=== PATIENT | female | born 1945 | race Caucasian/White ===

== ENCOUNTER → 2024-03-01 10:24 | Outpatient (REF) | payer MEDICARE, SELFPAY | LOC: HWWDC 10:24 | PROVIDERS: ATTENDING PHYSICIAN Internal Medicine Geriatric Medicine | DX: Z12.31 Encounter for screening mammogram for malignant neoplasm of breast (principal) | CPT/HCPCS: 77063; 77067 ==

== ENCOUNTER 2024-06-28 06:26 | Day surgery (SDC) | payer MEDICARE, SELFPAY | END 2024-06-28 15:00 | disposition home or self-care (01) | LOC: GI 06:26 | PROVIDERS: ATTENDING PHYSICIAN Internal Medicine Gastroenterology | DX: R12 Heartburn (principal); Q39.9 Congenital malformation of esophagus, unspecified; Z98.84 Bariatric surgery status; K28.9 Gastrojejunal ulcer, unspecified as acute or chronic, without hemorrhage or perforation; R13.14 Dysphagia, pharyngoesophageal phase | CPT/HCPCS: 43239; 88305; 88342 ==

== ENCOUNTER 2024-09-25 06:25 | Day surgery (SDC) | payer MEDICARE, SELFPAY | END 2024-09-25 11:19 | disposition home or self-care (01) | LOC: GI 06:25 | PROVIDERS: ATTENDING PHYSICIAN Internal Medicine Gastroenterology; FAMILY PHYSICIAN Internal Medicine Cardiovascular Disease | DX: R12 Heartburn (principal); Q39.9 Congenital malformation of esophagus, unspecified; K28.3 Acute gastrojejunal ulcer without hemorrhage or perforation; Z98.84 Bariatric surgery status | CPT/HCPCS: 43235 ==

== ENCOUNTER 2024-09-30 09:21 | Emergency (ER) | payer MEDICARE, SELFPAY ==
[2024-09-30 09:23] VITALS: BP 138/70
--- NOTE | 2024-09-30 10:31 | ED.GENMED ---
History of Present Illness
General
Chief Complaint: Musculo-Skeletal Complaint
Source: patient
Exam Limitations: none
Time Seen by Provider: 09/30/24 09:45
History of Present Illness
History of Present Illness:
79yoF with prior bilateral knee replacements presenting for evaluation of left knee pain. Patient fell asleep on her couch last night. She woke up around midnight and her left leg was asleep. She shook her leg to relieve the paresthesias and
thought she was okay. When she stood up, her left knee 'flexed wrong.' She has been having pain with weight bearing since then. She took Tylenol and Tramadol with some improvement. She denies any pain at rest. She is mainly concerned that her
hardware may be damaged.
Past History
Past History
ED Past Medical History: GERD, Hypercholesterolemia and Other (Gastritis, osteoarthritis, neuropathy, insomnia, osteopenia, chronic low back pain )
ED Past Surgical History: Appendectomy, Cholecystectomy, Orthopedic (Bilateral total knee replacements, lumbar surgery, foot surgery) and Other (Hysterectomy, gastric bypass hernia repair )
Social History
Tobacco: Non-smoker
Alcohol: None
Personal:
Living: with family (Resides with her at [facility]/independent apartment)
Family History
Family History: Other (Noncontributory)
Phy Exam
General Physical Exam
General Presentation: well appearing and no apparent distress
General age: appears stated age
General Skin: warm and dry
General Habitus: normal
ENT Exam
ENT Exam: normocephalic
Pulmonary Exam
Pulmonary Exam: no respiratory distress
Musculoskeletal Exam
Musculoskeletal Exam: other (L knee: Normal to inspection. No effusion noted. +Tenderness to lateral joint line. ROM mildly decreased and pain elicited with extension. 2+ DP pulse.)
Skin Exam
Skin Exam: normal color and warm/dry
Psychiatric Exam
Psychiatric Exam: normal mood/affect
Course
Orders/Labs/Results
Orders:
Orders
09/30/24 09:25
CR Knee - Left 4 Or More View* Urgent
Comment: hx TKR
Reason For Exam: right knee pain may have hyperextended
09/30/24 11:04
Trever Wrap Left-Treatment ONCE
Crutches-Treatment ONCE
Vital Signs
Initial and Last Documented VS:
Initial Vital Signs
Temp Pulse Resp BP Pulse Ox
98.1 F 71 16 138/70 98
09/30/24 09:23 09/30/24 09:23 09/30/24 09:23 09/30/24 09:23 09/30/24 09:23
Last Documented Vital Signs
Temp Pulse Resp BP Pulse Ox
98.1 F 71 16 138/70 98
09/30/24 09:23 09/30/24 09:23 09/30/24 09:23 09/30/24 09:23 09/30/24 09:23
MDM/Problems Addressed
Differential Diagnosis Includes:
79yoF here with L knee pain after 'flexing wrong.' Hx of prior knee replacement. No deformity or effusion on exam. ROM mildly limited. LLE is neurovascularly intact. Differential diagnosis includes but is not limited to: sprain, meniscus injury,
less likely fracture
X-rays obtained which appear normal per my interpretation. Trever wrap applied. Patient requesting crutches which were provided. Supportive care discussed and advised f/u with orthopedics.
*Critical Care Note
Total Time (30-74mins, 75-104mins- exclusive of procedures): Not Applicable
ED Attending Note
-
Portions of this chart may have been created with voice recognition software.� Occasional wrong word or��sound alike� substitutions may have occurred due to the inherent limitations of voice recognition software.
Discharge Plan
Departure
Patient Disposition: Home (Routine Discharge)
Date of Disposition: 09/30/24
Time of Disposition: 11:04
Patient with high blood pressure during this ER visit?: No
Discharge Problem:
Left knee injury
Instructions: Knee Pain (DC)
Prescriptions:
No Action
atorvastatin 40 mg Tablet
40 mg PO DAILY
cephalexin 250 mg Tablet
250 mg PO HS
calcium carbonate 500 mg calcium (1,250 mg) Tablet
500 mg PO DAILY
magnesium 250 mg Tablet
500 mg PO DAILY
loratadine 10 mg Tablet
10 mg PO DAILY
Rx Instructions:
[facility] brand Allergy Relief
cholecalciferol (vitamin D3) [Vitamin D3] 50 mcg (2,000 unit) Tablet
50 mcg PO DAILY
Women's Daily Formula 18 mg iron-400 mcg-500 mg Tablet
1 tab PO DAILY
PreserVision AREDS-2 250-90-40-1 mg Capsule
1 tab PO BID
potassium citrate 99 mg Capsule
99 mg PO DAILY
gabapentin 600 mg Tablet
600 mg PO DAILY@0700,1500
Hair,Skin and Nails Tablet
1 tab PO DAILY
albuterol sulfate 90 mcg/actuation Hfa Aerosol Inhaler
2 puff INHALATION 6XD PRN (Reason: asthma)
glucosamine-chondroitin 500-400 mg Tablet
1 tab PO DAILY
Rx Instructions:
Glucosamine- 1500mg, Chondroitin- 1200mg
esomeprazole magnesium [Nexium] 20 mg Capsule,Delayed Release(Dr/Ec)
20 mg PO DAILY
mecobalamin (vitamin B12) 1,000 mcg Tablet,Chewable
1,000 mcg PO DAILY
gabapentin 900 mg Tablet Extended Release 24 Hr
900 mg PO HS
Bioactive Calcium Formula
650 mg PO BID
Theracran
500 mg PO DAILY
mupirocin 2 % ointment
1 applic intranasal BID Qty: 1 0RF
Patient Comments:
last dose was this am, 03/30/23
oxycodone 5 mg tablet
5 - 10 mg PO Q6H PRN (Reason: moderate-severe pain) Qty: 30 0RF
Rx Instructions:
1 tab for moderate pain, 2 if severe.
Dx total joint. Ongoing therapy.
dexamethasone 4 mg tablet
4 mg PO BID Qty: 7 0RF
Rx Instructions:
Start night of discharge and continue twice a day until finished.
Take with food.
ondansetron HCl 4 mg tablet
4 mg PO Q6H PRN (Reason: nausea and vomiting) Qty: 30 0RF
Rx Instructions:
Can take 1/2 hour prior to Oxycodone if experiencing recurrent nausea.
acetaminophen [Acetaminophen Extra Strength] 500 mg tablet
1,000 mg PO Q6H Qty: 60 0RF
Rx Instructions:
DO NOT exceed >4000 mg daily.
aspirin 325 mg tablet
325 mg PO DAILY Qty: 30 0RF
Rx Instructions:
Take daily x4 weeks for blood clot prevention; then resume Aspirin 81 mg daily.
docusate sodium [Colace] 100 mg capsule
100 mg PO BID Qty: 30 0RF
sennosides [Senna Lax] 8.6 mg tablet
17.2 mg PO BID Qty: 30 0RF
Referrals:
Jolie Hawk MD [Family Provider] -
Louis Bahena MD [Active] -
Activity Restrictions/Additional Instructions:
Rest, ice, compress, and elevate your knee. Take Tylenol as needed. Use crutches for comfort.
Please follow-up with the orthopedics.
Interventions
Interventions:
*Risk Screen - Suicide Last Done: 09/30/24 09:23
*General Assessment Last Done: 09/30/24 10:13
*Neglect/Abuse Screening Last Done: 09/30/24 09:23
*ED- Fall Risk Assessment Last Done: 09/30/24 10:13
*ED COVID-19 Vaccine History Last Done: 09/30/24 10:13
*Nursing Disposition Last Done: 09/30/24 11:45
ED-Musculoskeletal Assessment Last Done: 09/30/24 10:13
Discharge Date and Time
Discharge Date/Time: 09/30/24 11:46
Print Language: MALTESE
== END 2024-09-30 11:46 | disposition home or self-care (01) ==
LOC: EMR 09:21
PROVIDERS: EMERGENCY PHYSICIAN Emergency Medicine; FAMILY PHYSICIAN Internal Medicine Geriatric Medicine
DX: S89.92XA Unspecified injury of left lower leg, initial encounter (principal); X58.XXXA Exposure to other specified factors, initial encounter; K21.9 Gastro-esophageal reflux disease without esophagitis; E78.00 Pure hypercholesterolemia, unspecified; M19.90 Unspecified osteoarthritis, unspecified site; M85.80 Other specified disorders of bone density and structure, unspecified site; Z87.19 Personal history of other diseases of the digestive system; Z90.49 Acquired absence of other specified parts of digestive tract; Z90.710 Acquired absence of both cervix and uterus; Z96.653 Presence of artificial knee joint, bilateral; Z98.84 Bariatric surgery status
CPT/HCPCS: 99283; 73564